=== PATIENT | male | born 1950 | race Caucasian/White ===

== ENCOUNTER 2017-07-10 10:41 | Inpatient (IN) | payer MEDICARE, OTHER ==
[~2017-07-10] VITALS: Ht 167.6 cm; Wt 68.0 kg
[2017-07-10] VITALS (7 sets, daily range): BP systolic 94–142; BP diastolic 43–71
[2017-07-10] MEDS ORDERED: LORATADINE10 M3 PO (10:50)
[2017-07-10] MEDS ORDERED: LEVOTHYROXINE75 MCG ORAL (10:50)
[2017-07-10] MEDS ORDERED: BENAZEPRIL HCL10 MG ORAL (10:50)
[2017-07-10] MEDS ORDERED: FERROUS SULFAT325 MG ORAL (10:50)
[2017-07-10] MEDS ORDERED: ATENOLOL25 MG ORAL (10:50)
[2017-07-10] MEDS ORDERED: ZYPREXA10 MG ORAL (10:50)
[2017-07-10] MEDS ORDERED: FOLIC ACID1 MG ORAL (10:50)
[2017-07-10] MEDS ORDERED: FLUOXETINE HCL10 MG ORAL (10:50)
[2017-07-10] MEDS ORDERED: AMOXICILLI250 MG/5 M ORAL (10:50)
[2017-07-10] MEDS ORDERED: PANTOPRAZOLE SO40 MG ORAL (10:50)
[2017-07-10] MEDS ORDERED: TEMAZEPAM15 MG ORAL (10:50)
[2017-07-10] MEDS ORDERED: GEMFIBROZIL600 MG ORAL (10:50)
[2017-07-10] MEDS ORDERED: CLARITHROMYCIN500 MG PO (10:50)
[2017-07-10] MEDS ORDERED: NAPROXEN25 G1 MC (10:50)
[2017-07-10 11:54] LABS: HEMATOCRIT 32.6 % (42.0-52.0); HEMOGLOBIN 10.6 G/DL (14.2-18.0); MEAN CORPUSCULAR VOLUME 102 FL (80-99); PLATELET COUNT 195 K/UL (150-450); RED BLOOD COUNT 3.21 M/UL (4.70-6.10); RED CELL DISTRIBUTION WIDTH 12.2 % (11.6-14.8); WHITE BLOOD COUNT 7.2 K/UL (4.8-10.8)
[2017-07-10 12:19] LABS: ALANINE AMINOTRANSFERASE 15 U/L (12-78); ALBUMIN 3.8 G/DL (3.4-5.0); ALBUMIN/GLOBULIN RATIO 0.9 (1.0-2.7); ALKALINE PHOSPHATASE 65 U/L (46-116); ANION GAP 11 mmol/L (5-15); ASPARTATE AMINO TRANSFERASE 15 U/L (15-37); BILIRUBIN,TOTAL 0.7 MG/DL (0.2-1.0); BLOOD UREA NITROGEN 43 mg/dL (7-18); CALCIUM 7.1 MG/DL (8.5-10.1); CARBON DIOXIDE 17 MMOL/L (21-32); CHLORIDE 109 MMOL/L (98-107); CKMB < 0.5 NG/ML (0.0-3.6); CREATINE KINASE 91 U/L (26-308); CREATININE 3.1 MG/DL (0.55-1.30); SODIUM 138 MMOL/L (136-145)
[2017-07-10 12:22] LABS: POTASSIUM 6.2 MMOL/L (3.5-5.1)
[2017-07-10] MEDS ORDERED: Calcium Gluconate 1gm/10ml vial IVP ONE (12:30)
--- NOTE | 2017-07-10 14:32 | Emergency Room Report ---
History of Present Illness General Chief Complaint: Syncope Source: Patient, Medical Record Present Illness HPI 67-year-old male presents to ED status post syncopal episode. Patient was at the adult daycare when he started to feel dizzy and passed out. No head trauma. Per EMS patient had low blood pressure. Given IV fluids. Patient states the last few days he's had diarrhea has been feeling weak. Denies chest pain or shortness of breath. Denies headaches. Patient has history of schizophrenia. Denies hearing voices. Denies or or drug use. No other aggravating relieving factors. Denies any other associated symptoms Allergies: Coded Allergies: No Known Allergies (Unverified , 07/10/17) Patient History Past Medical History: HTN, psych hx Past Surgical History: none Pertinent Family History: none Social History: Denies: smoking, alcohol use, drug use Immunizations: UTD Reviewed Nursing Documentation: PMH: Agreed, PSxH: Agreed Nursing Documentation-PMH Hx Hypertension: Yes History Of Psychiatric Problem: Yes - Schizophrenia Review of Systems All Other Systems: negative except mentioned in HPI Physical Exam Vital Signs Date Time Temp Pulse Resp B/P (MAP) Pulse Ox O2 Delivery O2 Flow Rate FiO2 07/10/17 10:37 90 16 148/66 99 Room Air 07/10/17 11:51 97.5 Sp02 EP Interpretation: reviewed, normal General Appearance: no apparent distress, alert, GCS 15, non-toxic Head: normocephalic, atraumatic Eyes: bilateral eye normal inspection, bilateral eye PERRL ENT: hearing grossly normal, normal pharynx, no angioedema, normal voice Neck: full range of motion, supple/symm/no masses Respiratory: chest non-tender, lungs clear, normal breath sounds, speaking full sentences Cardiovascular #1: regular rate, rhythm, no edema Cardiovascular #2: 2+ carotid (R), 2+ carotid (L), 2+ radial (R), 2+ radial (L) , 2+ dorsalis pedis (R), 2+ dorsalis pedis (L) Gastrointestinal: normal bowel sounds, non tender, soft, non-distended, no guarding, no rebound Rectal: deferred Genitourinary: normal inspection, no CVA tenderness Musculoskeletal: back normal, gait/station normal, normal range of motion, non- tender Neurologic: alert, oriented x3, responsive, motor strength/tone normal, sensory intact, speech normal Psychiatric: judgement/insight normal, memory normal, mood/affect normal, no suicidal/homicidal ideation Reflexes: 3+ bicep (R), 3+ bicep (L), 3+ tricep (R), 3+ tricep (L), 3+ knee (R) , 3+ knee (L) Skin: normal color, no rash, warm/dry, well hydrated Lymphatic: no adenopathy Medical Decision Making Diagnostic Impression: Primary Impression: Syncope Qualified Codes: R55 - Syncope and collapse Additional Impressions: Renal insufficiency Hyperkalemia, diminished renal excretion ER Course Hospital Course 67-year-old male presents to ED status post syncopal episode. Hypotensive in field Differential diagnoses include: PA/unstable angina, V. tach, bradycardia, hyperkalemia, fluid overload Clinical course Patient placed on stretcher. on monitor worker. After initial history and physical I ordered labs, EKG, IVFs, CXR labs reviewed- potassium 6.2. BUN/Cr elevated. Hemoglobin/hematocrit normal. trop negative EKG - NSR, no acute ischemic changes interpreted by me CXR unremarkable Given insulin/D50 and calcium. Case discussed with Dr. Ventura and he agreed to accept the patient to his service for further care and support I. I feel this is a highly complex case requiring extensive working including EKG/Rhythm strip, Xray/CT/US, Blood/urine lab work, repeat exams while in ED, and administration of strong opiates/narcotics for pain control, admission to hospital or close patient follow up. Diagnosis - hyperkalemia, renal insufficiency, syncope admitted to telemetry in serious condition Labs Test 07/10/17 11:28 White Blood Count 7.2 K/UL (4.8-10.8) Red Blood Count 3.21 M/UL (4.70-6.10) Hemoglobin 10.6 G/DL (14.2-18.0) Hematocrit 32.6 % (42.0-52.0) Mean Corpuscular Volume 102 FL (80-99) Mean Corpuscular Hemoglobin 33.0 PG (27.0-31.0) Mean Corpuscular Hemoglobin Concent 32.5 G/DL (32.0-36.0) Red Cell Distribution Width 12.2 % (11.6-14.8) Platelet Count 195 K/UL (150-450) Mean Platelet Volume 8.5 FL (6.5-10.1) Neutrophils (%) (Auto) % (45.0-75.0) Lymphocytes (%) (Auto) % (20.0-45.0) Monocytes (%) (Auto) % (1.0-10.0) Eosinophils (%) (Auto) % (0.0-3.0) Basophils (%) (Auto) % (0.0-2.0) Differential Total Cells Counted 100 Neutrophils % (Manual) 86 % (45-75) Lymphocytes % (Manual) 7 % (20-45) Monocytes % (Manual) 4 % (1-10) Eosinophils % (Manual) 0 % (0-3) Basophils % (Manual) 0 % (0-2) Band Neutrophils 3 % (0-8) Platelet Estimate Adequate Platelet Morphology Normal Hypochromasia 1+ Anisocytosis 1+ Macrocytosis 1+ Sodium Level 138 MMOL/L (136-145) Potassium Level 6.2 MMOL/L (3.5-5.1) Chloride Level 109 MMOL/L (98-107) Carbon Dioxide Level 17 MMOL/L (21-32) Anion Gap 11 mmol/L (5-15) Blood Urea Nitrogen 43 mg/dL (7-18) Creatinine 3.1 MG/DL (0.55-1.30) Estimat Glomerular Filtration Rate 20.2 mL/min (>60) Glucose Level 135 MG/DL (74-106) Calcium Level 7.1 MG/DL (8.5-10.1) Total Bilirubin 0.7 MG/DL (0.2-1.0) Aspartate Amino Transf (AST/SGOT) 15 U/L (15-37) Alanine Aminotransferase (ALT/SGPT) 15 U/L (12-78) Alkaline Phosphatase 65 U/L (46-116) Total Creatine Kinase 91 U/L (26-308) Creatine Kinase MB < 0.5 NG/ML (0.0-3.6) Creatine Kinase MB Relative Index 0.5 Troponin I 0.000 ng/mL (0.000-0.056) Pro-B-Type Natriuretic Peptide 110 pg/mL (0-125) Total Protein 7.9 G/DL (6.4-8.2) Albumin 3.8 G/DL (3.4-5.0) Globulin 4.1 g/dL Albumin/Globulin Ratio 0.9 (1.0-2.7) EKG Diagnostic Results Rate: normal ST Segments: no acute changes ASA given to the pt in ED: No Rhythm Strip Diag. Results EP Interpretation: yes Rhythm: NSR, no PVC's, no ectopy Chest X-Ray Diagnostic Results Chest X-Ray Diagnostic Results : Chest X-Ray Ordered: Yes # of Views/Limited/Complete: 1 View Indication: Other - syncope EP Interpretation: Yes Interpretation: no consolidation, no effusion, no pneumothorax, no acute cardiopulmonary disease Electronically Signed by: Electronically signed by Keagan Mosquera MD Last Vital Signs Date Time Temp Pulse Resp B/P (MAP) Pulse Ox O2 Delivery O2 Flow Rate FiO2 07/10/17 11:51 97.5 61 12 94/56 100 Room Air Disposition: ADMITTED INPATIENT Condition: Serious Referrals: NON PHYSICIAN (PCP) KEAGAN MOSQUERA M.D. Jul 10, 2017 14:32
[2017-07-10] MEDS ORDERED: Mylanta II UD 30ml ORAL PRN (14:45)
[2017-07-10] MEDS ORDERED: Morphine Sulfate 2mg/ml Inj IVP PRN (14:45)
[2017-07-10] MEDS ORDERED: LORazepam Inj 2mg/ml 1ml IV PRN (14:45)
[2017-07-10] MEDS ORDERED: Zolpidem 5mg tab ORAL PRN (21:00)
[2017-07-10] MEDS ORDERED: Miralax 17gm pkt ORAL PRN (21:00)
--- NOTE | 2017-07-10 21:48 | Diagnostic Imaging Report ---
Indication: Dyspnea Comparison: None A single view chest radiograph was obtained. Findings: Cardiomediastinal appearance is within normal limits for age. Pulmonary vascularity is appropriate. The diaphragmatic contour is smooth and costophrenic angles are sharp. No pleural effusions are identified. The bones are unremarkable. Impression: No acute findings
[2017-07-10] MEDS: Heparin 5000 units/ml inj SUBQ SCH (22:07)
--- NOTE | 2017-07-10 23:22 | History and Physical ---
History of Present Illness General Date patient seen: Jul 10, 2017 Reason for Hospitalization: Syncope Present Illness HPI 67 year old male with hx of HTN, psychosis presented to ED status post syncopal episode. Patient was at the adult daycare when he started to feel dizzy and passed out. No head trauma. Per EMS patient had low blood pressure. Given IV fluids. Patient states the last few days he's had diarrhea has been feeling weak. Denies chest pain or shortness of breath. Denies headaches. Patient has history of schizophrenia. Denies hearing voices. Denies or or drug use. No other aggravating relieving factors. Pt is admitted to telemetry for syncope and hyperkalemia. Allergies: Coded Allergies: No Known Allergies (Unverified , 07/10/17) Medication History Scheduled Amoxicillin* (Amoxicillin*), 1,000 MG ORAL EVERY 8 HOURS, (Reported) Atenolol* (Tenormin*), 25 MG ORAL DAILY, (Reported) Benazepril Hcl* (Benazepril Hcl*), 20 MG ORAL DAILY, (Reported) Clarithromycin* (Clarithromycin*), 500 MG PO Q12HR, (Reported) Ferrous Sulfate* (Ferrous Sulfate*), 325 MG ORAL DAILY, (Reported) Fluoxetine Hcl* (Fluoxetine Hcl*), 10 MG ORAL DAILY, (Reported) Folic Acid* (Folic Acid*), 1 MG ORAL DAILY, (Reported) Gemfibrozil (Gemfibrozil*), 600 MG ORAL BID, (Reported) Levothyroxine Sodium* (Levothyroxine Sodium*), 75 MCG ORAL DAILY, (Reported) Loratadine (Loratadine), 10 MG PO DAILY, (Reported) Naproxen (Naproxen), 500 MG MC BID, (Reported) Olanzapine* (Zyprexa*), 10 MG ORAL HS, (Reported) Pantoprazole* (Pantoprazole*), 40 MG ORAL EVERY 12 HOURS, (Reported) Temazepam (Temazepam*), 15 MG ORAL BEDTIME, (Reported) Patient History Healthcare decision maker Resuscitation status Advanced Directive on File Past Medical/Surgical History Past Medical/Surgical History: (1) History of psychosis (2) History of hypertension Review of Systems Constitutional: Reports: malaise, weakness Gastrointestinal: Reports: diarrhea Physical Exam General Appearance: WD/WN Lines, tubes and drains: peripheral HEENT: normocephalic Neck: non-tender, supple Respiratory/Chest: chest wall non-tender, lungs clear Breasts: no masses Cardiovascular/Chest: normal peripheral pulses Abdomen: normal bowel sounds Genitourinary/Rectal: normal genital exam Extremities: non-tender Last 24 Hour Vital Signs Date Time Temp Pulse Resp B/P (MAP) Pulse Ox O2 Delivery O2 Flow Rate FiO2 07/10/17 21:00 98 29 101/71 99 Room Air 07/10/17 19:00 81 18 142/49 95 Room Air 07/10/17 18:22 60 18 103/50 100 Room Air 07/10/17 15:00 83 15 112/70 98 Room Air 07/10/17 11:51 97.5 61 12 94/56 100 Room Air 07/10/17 10:37 90 16 148/66 99 Room Air Laboratory Tests Test 07/10/17 11:28 07/10/17 11:30 07/10/17 14:37 White Blood Count 7.2 K/UL (4.8-10.8) Red Blood Count 3.21 M/UL (4.70-6.10) L Hemoglobin 10.6 G/DL (14.2-18.0) L Hematocrit 32.6 % (42.0-52.0) L Mean Corpuscular Volume 102 FL (80-99) H Mean Corpuscular Hemoglobin 33.0 PG (27.0-31.0) H Mean Corpuscular Hemoglobin Concent 32.5 G/DL (32.0-36.0) Red Cell Distribution Width 12.2 % (11.6-14.8) Platelet Count 195 K/UL (150-450) Mean Platelet Volume 8.5 FL (6.5-10.1) Neutrophils (%) (Auto) % (45.0-75.0) Lymphocytes (%) (Auto) % (20.0-45.0) Monocytes (%) (Auto) % (1.0-10.0) Eosinophils (%) (Auto) % (0.0-3.0) Basophils (%) (Auto) % (0.0-2.0) Differential Total Cells Counted 100 Neutrophils % (Manual) 86 % (45-75) H Lymphocytes % (Manual) 7 % (20-45) L Monocytes % (Manual) 4 % (1-10) Eosinophils % (Manual) 0 % (0-3) Basophils % (Manual) 0 % (0-2) Band Neutrophils 3 % (0-8) Platelet Estimate Adequate Platelet Morphology Normal Hypochromasia 1+ Anisocytosis 1+ Macrocytosis 1+ Sodium Level 138 MMOL/L (136-145) Pending Potassium Level 6.2 MMOL/L (3.5-5.1) *H Pending Chloride Level 109 MMOL/L (98-107) H Pending Carbon Dioxide Level 17 MMOL/L (21-32) L Pending Anion Gap 11 mmol/L (5-15) Blood Urea Nitrogen 43 mg/dL (7-18) H Pending Creatinine 3.1 MG/DL (0.55-1.30) H Pending Estimat Glomerular Filtration Rate 20.2 mL/min (>60) Pending Glucose Level 135 MG/DL (74-106) H Pending Calcium Level 7.1 MG/DL (8.5-10.1) L Pending Total Bilirubin 0.7 MG/DL (0.2-1.0) Pending Aspartate Amino Transf (AST/SGOT) 15 U/L (15-37) Pending Alanine Aminotransferase (ALT/SGPT) 15 U/L (12-78) Pending Alkaline Phosphatase 65 U/L (46-116) Pending Total Creatine Kinase 91 U/L (26-308) Pending Creatine Kinase MB < 0.5 NG/ML (0.0-3.6) Creatine Kinase MB Relative Index 0.5 Troponin I 0.000 ng/mL (0.000-0.056) Pro-B-Type Natriuretic Peptide 110 pg/mL (0-125) Total Protein 7.9 G/DL (6.4-8.2) Pending Albumin 3.8 G/DL (3.4-5.0) Pending Globulin 4.1 g/dL Pending Albumin/Globulin Ratio 0.9 (1.0-2.7) L Cortisol Pending Osmolality Pending Uric Acid Pending Phosphorus Level Pending Magnesium Level Pending Free Thyroxine Pending Free Triiodothyronine Pending Height (Feet): 5 Height (Inches): 6.00 Weight (Pounds): 164 Medications Current Medications Medications (Trade) Dose Ordered Sig/Sandra Route PRN Reason Start Time Stop Time Status Last Admin Dose Admin Acetaminophen (Tylenol) 650 mg Q4H PRN ORAL T>100.5 07/10/17 14:45 08/09/17 14:44 Al Hydroxide/Mg Hydroxide (Mylanta II) 30 ml Q6H PRN ORAL dyspepsia 07/10/17 14:45 08/09/17 14:44 Atenolol (Tenormin) 25 mg DAILY ORAL 07/11/17 09:00 08/10/17 08:59 Clonidine HCl (Catapres) 0.1 mg Q4H PRN ORAL SBP > 160mmHg 07/10/17 14:45 08/09/17 14:44 Dextrose (Dextrose 50%) STAT PRN IV Hypoglycemia 07/10/17 14:45 08/09/17 14:44 Fluoxetine HCl (PROzac) 10 mg DAILY ORAL 07/11/17 09:00 08/10/17 08:59 Heparin Sodium (Porcine) (Heparin 5000 units/ml) 5,000 units EVERY 12 HOURS SUBQ 07/10/17 21:00 08/09/17 20:59 07/10/17 22:07 Levothyroxine Sodium (Synthroid) 75 mcg ACBREAKFAST ORAL 07/11/17 06:30 08/10/17 06:29 Lorazepam (Ativan 2mg/ml 1ml) 0.5 mg Q4H PRN IV For Anxiety 07/10/17 14:45 07/17/17 14:44 Morphine Sulfate (Morphine Sulfate) 1 mg Q4H PRN IVP PAIN 4-10 07/10/17 14:45 07/17/17 14:44 Olanzapine (ZyPREXA) 5 mg QHS ORAL 07/10/17 21:00 08/09/17 20:59 07/10/17 22:07 Ondansetron HCl (Zofran) 4 mg Q6H PRN IVP Nausea & Vomiting 07/10/17 14:45 08/09/17 14:44 Polyethylene Glycol (Miralax) 17 gm HSPRN PRN ORAL Constipation 07/10/17 21:00 08/09/17 20:59 Zolpidem Tartrate (Ambien) 5 mg HSPRN PRN ORAL Insomnia 07/10/17 21:00 07/17/17 20:59 Assessment/Plan Problem List: (1) Acute encephalopathy ICD Codes: G93.40 - Encephalopathy, unspecified SNOMED: 8552814 (2) Hyperkalemia, diminished renal excretion ICD Codes: E87.5 - Hyperkalemia SNOMED: 37927340, 505870714 (3) History of hypertension ICD Codes: Z86.79 - Personal history of other diseases of the circulatory system SNOMED: 212218552 (4) History of psychosis ICD Codes: Z86.59 - Personal history of other mental and behavioral disorders SNOMED: 020034150 Assessment/Plan iv fluids check electrolytes check echo adjust BP meds neuro and renal evaluation. DELILAH SANCHEZ Jul 10, 2017 23:22
[2017-07-11 04:00] VITALS: BP 104/73
[2017-07-11 05:19] LABS: BASOPHILS % (AUTO) 0.3 % (0.0-2.0); EOSINOPHILS % (AUTO) 4.6 % (0.0-3.0); HEMATOCRIT 27.8 % (42.0-52.0); HEMOGLOBIN 9.6 G/DL (14.2-18.0); MEAN CORPUSCULAR VOLUME 101 FL (80-99); MONOCYTES % (AUTO) 8.5 % (1.0-10.0); NEUTROPHILS % (AUTO) 64.5 % (45.0-75.0); PLATELET COUNT 188 K/UL (150-450); RED BLOOD COUNT 2.77 M/UL (4.70-6.10); RED CELL DISTRIBUTION WIDTH 12.2 % (11.6-14.8); WHITE BLOOD COUNT 4.2 K/UL (4.8-10.8)
[2017-07-11 06:20] LABS: LACTATE DEHYDROGENASE 166 U/L (81-234); PHOSPHORUS 2.2 MG/DL (2.5-4.9)
[2017-07-11 06:31] LABS: INR 1.1 (0.9-1.1)
[2017-07-11 06:32] LABS: ALANINE AMINOTRANSFERASE 9 U/L (12-78); ALBUMIN 3.3 G/DL (3.4-5.0); ALBUMIN/GLOBULIN RATIO 0.9 (1.0-2.7); ALKALINE PHOSPHATASE 68 U/L (46-116); ANION GAP 12 mmol/L (5-15); ASPARTATE AMINO TRANSFERASE 16 U/L (15-37); BILIRUBIN,TOTAL 0.5 MG/DL (0.2-1.0); BLOOD UREA NITROGEN 31 mg/dL (7-18); CARBON DIOXIDE 16 MMOL/L (21-32); CHLORIDE 114 MMOL/L (98-107); CHOLESTEROL 126 MG/DL (< 200); HDL CHOLESTEROL 39 MG/DL (40-60); POTASSIUM 4.8 MMOL/L (3.5-5.1); SODIUM 142 MMOL/L (136-145); TRIGLYCERIDES 103 MG/DL (30-150)
[2017-07-11 07:16] LABS: % IRON SATURATION 9 % (15-50); IRON 33 ug/dL (50-175); TOTAL IRON BINDING CAPACITY 366 ug/dL (250-450)
[2017-07-11 08:00] VITALS: BP 108/60
[2017-07-11] MEDS: FLUoxetine 10mg cap ORAL SCH (08:44)
[2017-07-11] MEDS: Atenolol 25mg tab ORAL SCH (08:46)
[2017-07-11] MEDS: Heparin 5000 units/ml inj SUBQ SCH ×2 (08:48→20:50)
--- NOTE | 2017-07-11 10:19 | Pulmonology Progress Note ---
Assessment/Plan Problems: (1) Acute encephalopathy (2) Hyperkalemia, diminished renal excretion (3) History of hypertension (4) History of psychosis Assessment/Plan improving sitting up in the chair K better Mg and phos supplement continue iv fluis Subjective ROS Limited/Unobtainable: No Interval Events: feeling better Allergies: Coded Allergies: No Known Allergies (Unverified , 07/10/17) Objective Last 24 Hour Vital Signs Date Time Temp Pulse Resp B/P (MAP) Pulse Ox O2 Delivery O2 Flow Rate FiO2 07/11/17 08:46 75 108/60 07/11/17 08:00 99.9 75 18 108/60 99 Room Air 07/11/17 04:00 99.1 85 20 104/73 98 Room Air 07/11/17 04:00 71 07/11/17 00:30 97.5 76 18 108/60 100 Room Air 07/10/17 23:30 76 18 108/60 100 Room Air 07/10/17 23:00 68 11 109/43 100 Room Air 07/10/17 21:00 98 29 101/71 99 Room Air 07/10/17 19:00 81 18 142/49 95 Room Air 07/10/17 18:22 60 18 103/50 100 Room Air 07/10/17 15:00 83 15 112/70 98 Room Air 07/10/17 11:51 97.5 61 12 94/56 100 Room Air 07/10/17 10:37 90 16 148/66 99 Room Air Intake and Output 07/10/17 07/11/17 19:00 07:00 Intake Total 1000 ml 150 ml Output Total 350 ml Balance 1000 ml -200 ml Intake Oral 0 ml 150 ml IV Total 1000 ml Output Urine Total 350 ml # Voids 1 General Appearance: WD/WN HEENT: normocephalic, atraumatic Respiratory/Chest: chest wall non-tender, lungs clear Abdomen: normal bowel sounds, soft, non tender Genitourinary: normal external genitalia Extremities: no cyanosis Skin: no lesions Neurologic/Psychiatric: reconstructive surgeon II-XII grossly normal Lymphatic: no neck adenopathy Laboratory Tests 07/10/17 11:28: White Blood Count 7.2, Red Blood Count 3.21L, Hemoglobin 10.6L, Hematocrit 32.6L , Mean Corpuscular Volume 102H, Mean Corpuscular Hemoglobin 33.0H, Mean Corpuscular Hemoglobin Concent 32.5, Red Cell Distribution Width 12.2, Platelet Count 195, Mean Platelet Volume 8.5, Neutrophils (%) (Auto) , Lymphocytes (%) ( Auto) , Monocytes (%) (Auto) , Eosinophils (%) (Auto) , Basophils (%) (Auto) , Differential Total Cells Counted 100, Neutrophils % (Manual) 86H, Lymphocytes % (Manual) 7L, Monocytes % (Manual) 4, Eosinophils % (Manual) 0, Basophils % ( Manual) 0, Band Neutrophils 3, Platelet Estimate Adequate, Platelet Morphology Normal, Hypochromasia 1+, Anisocytosis 1+, Macrocytosis 1+, Sodium Level 138, Potassium Level 6.2*H, Chloride Level 109H, Carbon Dioxide Level 17L, Anion Gap 11, Blood Urea Nitrogen 43H, Creatinine 3.1H, Estimat Glomerular Filtration Rate 20.2, Glucose Level 135H, Calcium Level 7.1L, Total Bilirubin 0.7, Aspartate Amino Transf (AST/SGOT) 15, Alanine Aminotransferase (ALT/SGPT) 15, Alkaline Phosphatase 65, Total Creatine Kinase 91, Creatine Kinase MB < 0.5, Creatine Kinase MB Relative Index 0.5, Troponin I 0.000, Pro-B-Type Natriuretic Peptide 110, Total Protein 7.9, Albumin 3.8, Globulin 4.1, Albumin/Globulin Ratio 0.9L 07/10/17 11:30: Cortisol 30.8 07/10/17 14:37: Sodium Level [Pending], Potassium Level [Pending], Chloride Level [Pending], Carbon Dioxide Level [Pending], Blood Urea Nitrogen [Pending], Creatinine [ Pending], Estimat Glomerular Filtration Rate [Pending], Glucose Level [Pending] , Calcium Level [Pending], Total Bilirubin [Pending], Aspartate Amino Transf ( AST/SGOT) [Pending], Alanine Aminotransferase (ALT/SGPT) [Pending], Alkaline Phosphatase [Pending], Total Creatine Kinase [Pending], Total Protein [Pending] , Albumin [Pending], Globulin [Pending], Osmolality [Pending], Uric Acid [ Pending], Phosphorus Level [Pending], Magnesium Level [Pending], Free Thyroxine [Pending], Free Triiodothyronine [Pending] 07/11/17 03:30: White Blood Count 4.2L, Red Blood Count 2.77L, Hemoglobin 9.6L, Hematocrit 27.8L , Mean Corpuscular Volume 101H, Mean Corpuscular Hemoglobin 34.6H, Mean Corpuscular Hemoglobin Concent 34.4, Red Cell Distribution Width 12.2, Platelet Count 188, Mean Platelet Volume 8.1, Neutrophils (%) (Auto) 64.5, Lymphocytes (% ) (Auto) 22.0, Monocytes (%) (Auto) 8.5, Eosinophils (%) (Auto) 4.6H, Basophils (%) (Auto) 0.3, Neutrophils % (Manual) [Pending], Lymphocytes % (Manual) [ Pending], Platelet Estimate [Pending], Platelet Morphology [Pending], Sodium Level 142, Potassium Level 4.8, Chloride Level 114H, Carbon Dioxide Level 16L, Anion Gap 12, Blood Urea Nitrogen 31H, Creatinine 2.0H, Estimat Glomerular Filtration Rate 33.5, Glucose Level 109H, Calcium Level 7.0L, Total Bilirubin 0.5, Aspartate Amino Transf (AST/SGOT) 16, Alanine Aminotransferase (ALT/SGPT) 9L, Alkaline Phosphatase 68, Total Creatine Kinase [Pending], Total Protein 6.9 , Albumin 3.3L, Globulin 3.6, Albumin/Globulin Ratio 0.9L, Uric Acid [Pending], Phosphorus Level 2.2L, Magnesium Level 1.6L, Erythrocyte Sedimentation Rate [ Pending], Reticulocyte Count [Pending], Prothrombin Time 11.5, Prothromb Time International Ratio 1.1, Activated Partial Thromboplast Time 31, Hemoglobin A1c 5.8, Iron Level 33L, Total Iron Binding Capacity 366, Percent Iron Saturation 9L , Unsaturated Iron Binding 333, Lactate Dehydrogenase 166, Triglycerides Level 103, Cholesterol Level 126, LDL Cholesterol 76, HDL Cholesterol 39L, Cholesterol /HDL Ratio 3.2L, Vitamin B12 Level 252, Folate 18.2, Thyroid Stimulating Hormone (TSH) 0.895 Current Medications Medications (Trade) Dose Ordered Sig/Sandra Route PRN Reason Start Time Stop Time Status Last Admin Dose Admin Acetaminophen (Tylenol) 650 mg Q4H PRN ORAL T>100.5 07/10/17 14:45 08/09/17 14:44 Al Hydroxide/Mg Hydroxide (Mylanta II) 30 ml Q6H PRN ORAL dyspepsia 07/10/17 14:45 08/09/17 14:44 Atenolol (Tenormin) 25 mg DAILY ORAL 07/11/17 09:00 08/10/17 08:59 07/11/17 08:46 Clonidine HCl (Catapres) 0.1 mg Q4H PRN ORAL SBP > 160mmHg 07/10/17 14:45 08/09/17 14:44 Dextrose (Dextrose 50%) STAT PRN IV Hypoglycemia 07/10/17 14:45 08/09/17 14:44 Fluoxetine HCl (PROzac) 10 mg DAILY ORAL 07/11/17 09:00 08/10/17 08:59 07/11/17 08:44 Heparin Sodium (Porcine) (Heparin 5000 units/ml) 5,000 units EVERY 12 HOURS SUBQ 07/10/17 21:00 08/09/17 20:59 07/11/17 08:48 Influenza Virus Vaccine Quadrival (Flu Vaccine Quadrivalent) 0.5 ml ONCE ONCE IM 07/11/17 09:00 07/11/17 09:01 UNV Levothyroxine Sodium (Synthroid) 75 mcg ACBREAKFAST ORAL 07/11/17 06:30 08/10/17 06:29 07/11/17 06:19 Lorazepam (Ativan 2mg/ml 1ml) 0.5 mg Q4H PRN IV For Anxiety 07/10/17 14:45 07/17/17 14:44 Morphine Sulfate (Morphine Sulfate) 1 mg Q4H PRN IVP PAIN 4-10 07/10/17 14:45 07/17/17 14:44 Olanzapine (ZyPREXA) 5 mg QHS ORAL 07/10/17 21:00 08/09/17 20:59 07/10/17 22:07 Ondansetron HCl (Zofran) 4 mg Q6H PRN IVP Nausea & Vomiting 07/10/17 14:45 08/09/17 14:44 Pneumococcal Polyvalent Vaccine (Pneumovax) 0.5 ml ONCE ONCE IM 07/11/17 09:00 07/11/17 09:01 UNV Polyethylene Glycol (Miralax) 17 gm HSPRN PRN ORAL Constipation 07/10/17 21:00 08/09/17 20:59 Zolpidem Tartrate (Ambien) 5 mg HSPRN PRN ORAL Insomnia 07/10/17 21:00 07/17/17 20:59 DELILAH SANCHEZ Jul 11, 2017 10:19
[2017-07-11 10:26] LABS: CREATINE KINASE 93 U/L (26-308)
[2017-07-11 12:00] VITALS: BP 103/54
[2017-07-11] MEDS ORDERED: Sodium Phosphate 30 MM in NS 275 ML IV ONE (12:00)
--- NOTE | 2017-07-11 12:31 | Consultation ---
Consult Note Consult Note asked to evaluate for renal failure 67-year-old male presents to ED status post syncopal episode. Patient was at the adult daycare when he started to feel dizzy and passed out. No head trauma. Per EMS patient had low blood pressure. Given IV fluids. Patient states the last few days he's had diarrhea has been feeling weak. Denies chest pain or shortness of breath. Denies headaches. Patient has history of schizophrenia. Denies hearing voices. Denies or or drug use. No other aggravating relieving factors. Denies any other associated symptoms Past Medical History: HTN, psych hx Hx Hypertension: Yes History Of Psychiatric Problem: Yes - Schizophrenia patient states that he was told to have Kidney disease. Assessment/Plan status: Renal failure, Likely hypertensive kidney disease- Cr lowering Hyperkalemia Anemia- HTN Schizophrenia Plan: Kidney NGUYỄN 2D echo Hydrate Urine studies per orders EVA FARLEY Jul 11, 2017 12:31
--- NOTE | 2017-07-11 12:55 | Cardiology Progress Note ---
Assessment/Plan Assessment/Plan syncope diarrhea dehydration hyperkalemia anemia ivf orthosttic vitlas dc acei echo home soon [id number] Objective Last 24 Hour Vital Signs Date Time Temp Pulse Resp B/P (MAP) Pulse Ox O2 Delivery O2 Flow Rate FiO2 07/11/17 08:46 75 108/60 07/11/17 08:00 99.9 75 18 108/60 99 Room Air 07/11/17 08:00 78 07/11/17 04:00 99.1 85 20 104/73 98 Room Air 07/11/17 04:00 71 07/11/17 00:30 97.5 76 18 108/60 100 Room Air 07/10/17 23:30 76 18 108/60 100 Room Air 07/10/17 23:00 68 11 109/43 100 Room Air 07/10/17 21:00 98 29 101/71 99 Room Air 07/10/17 19:00 81 18 142/49 95 Room Air 07/10/17 18:22 60 18 103/50 100 Room Air 07/10/17 15:00 83 15 112/70 98 Room Air Intake and Output 07/10/17 07/11/17 19:00 07:00 Intake Total 1000 ml 150 ml Output Total 350 ml Balance 1000 ml -200 ml Intake Oral 0 ml 150 ml IV Total 1000 ml Output Urine Total 350 ml # Voids 1 Laboratory Tests Test 07/10/17 14:37 07/11/17 03:30 Sodium Level Pending 142 MMOL/L (136-145) Potassium Level Pending 4.8 MMOL/L (3.5-5.1) Chloride Level Pending 114 MMOL/L (98-107) H Carbon Dioxide Level Pending 16 MMOL/L (21-32) L Blood Urea Nitrogen Pending 31 mg/dL (7-18) H Creatinine Pending 2.0 MG/DL (0.55-1.30) H Estimat Glomerular Filtration Rate Pending 33.5 mL/min (>60) Glucose Level Pending 109 MG/DL (74-106) H Osmolality Pending Uric Acid Pending 6.9 MG/DL (2.6-7.2) Calcium Level Pending 7.0 MG/DL (8.5-10.1) L Phosphorus Level Pending 2.2 MG/DL (2.5-4.9) L Magnesium Level Pending 1.6 MG/DL (1.8-2.4) L Total Bilirubin Pending 0.5 MG/DL (0.2-1.0) Aspartate Amino Transf (AST/SGOT) Pending 16 U/L (15-37) Alanine Aminotransferase (ALT/SGPT) Pending 9 U/L (12-78) L Alkaline Phosphatase Pending 68 U/L (46-116) Total Creatine Kinase Pending 93 U/L (26-308) Total Protein Pending 6.9 G/DL (6.4-8.2) Albumin Pending 3.3 G/DL (3.4-5.0) L Globulin Pending 3.6 g/dL Free Thyroxine Pending Free Triiodothyronine Pending White Blood Count 4.2 K/UL (4.8-10.8) L Red Blood Count 2.77 M/UL (4.70-6.10) L Hemoglobin 9.6 G/DL (14.2-18.0) L Hematocrit 27.8 % (42.0-52.0) L Mean Corpuscular Volume 101 FL (80-99) H Mean Corpuscular Hemoglobin 34.6 PG (27.0-31.0) H Mean Corpuscular Hemoglobin Concent 34.4 G/DL (32.0-36.0) Red Cell Distribution Width 12.2 % (11.6-14.8) Platelet Count 188 K/UL (150-450) Mean Platelet Volume 8.1 FL (6.5-10.1) Neutrophils (%) (Auto) 64.5 % (45.0-75.0) Lymphocytes (%) (Auto) 22.0 % (20.0-45.0) Monocytes (%) (Auto) 8.5 % (1.0-10.0) Eosinophils (%) (Auto) 4.6 % (0.0-3.0) H Basophils (%) (Auto) 0.3 % (0.0-2.0) Differential Total Cells Counted 100 Neutrophils % (Manual) 71 % (45-75) Lymphocytes % (Manual) 16 % (20-45) L Monocytes % (Manual) 7 % (1-10) Eosinophils % (Manual) 6 % (0-3) H Basophils % (Manual) 0 % (0-2) Band Neutrophils 0 % (0-8) Platelet Estimate Adequate Platelet Morphology Normal Hypochromasia 2+ Anisocytosis 1+ Macrocytosis 1+ Erythrocyte Sedimentation Rate 45 MM/HR (0-20) H Reticulocyte Count 0.9 % (0.0-2.0) Prothrombin Time 11.5 SEC (9.30-11.50) Prothromb Time International Ratio 1.1 (0.9-1.1) Activated Partial Thromboplast Time 31 SEC (23-33) Anion Gap 12 mmol/L (5-15) Hemoglobin A1c 5.8 % (4.3-6.0) Iron Level 33 ug/dL (50-175) L Total Iron Binding Capacity 366 ug/dL (250-450) Percent Iron Saturation 9 % (15-50) L Unsaturated Iron Binding 333 ug/dL (112-346) Lactate Dehydrogenase 166 U/L (81-234) Albumin/Globulin Ratio 0.9 (1.0-2.7) L Triglycerides Level 103 MG/DL (30-150) Cholesterol Level 126 MG/DL (< 200) LDL Cholesterol 76 mg/dL (<100) HDL Cholesterol 39 MG/DL (40-60) L Cholesterol/HDL Ratio 3.2 (3.3-4.4) L Vitamin B12 Level 252 PG/ML (193-986) Folate 18.2 NG/ML (8.6-58.9) Thyroid Stimulating Hormone (TSH) 0.895 uiU/mL (0.358-3.740) DELFIN SOLITARIO Jul 11, 2017 12:55
[2017-07-11] MEDS: D5 1/2NS 1,000 ML IV SCH (13:49)
--- NOTE | 2017-07-11 13:56 | Diagnostic Imaging Report ---
Indication:Elevated Bun and Creatinine. Technique: Grayscale and duplex Doppler imaging of the kidneys performed. Comparison: None Findings: There is a cyst in the lower pole of the right kidney measuring approximately 5 cm. There is no hydronephrosis. The IVC and bladder appear normal. The right kidney measures 9.7 cm. Left kidney 9.7 cm. No free fluid seen. IMPRESSION: No acute findings. Right renal cyst
[2017-07-11] MEDS ORDERED: Flu Vaccine Quadrivalent 0.5ml IM ONE (14:30)
[2017-07-11] MEDS ORDERED: Pneumococcal Vaccine 25mcg/0.5ml IM ONE (14:30)
--- NOTE | 2017-07-11 15:05 | Neurology Progress Note ---
Interim History Interim History ROS Limited/Unobtainable: No Objective Physical Exam Last Vital Signs Date Time Temp Pulse Resp B/P (MAP) Pulse Ox O2 Delivery O2 Flow Rate FiO2 07/11/17 13:21 62 64 69 07/11/17 12:00 98.8 18 103/54 99 Room Air Laboratory Tests Test 07/11/17 03:30 White Blood Count 4.2 K/UL (4.8-10.8) L Red Blood Count 2.77 M/UL (4.70-6.10) L Hemoglobin 9.6 G/DL (14.2-18.0) L Hematocrit 27.8 % (42.0-52.0) L Mean Corpuscular Volume 101 FL (80-99) H Mean Corpuscular Hemoglobin 34.6 PG (27.0-31.0) H Mean Corpuscular Hemoglobin Concent 34.4 G/DL (32.0-36.0) Red Cell Distribution Width 12.2 % (11.6-14.8) Platelet Count 188 K/UL (150-450) Mean Platelet Volume 8.1 FL (6.5-10.1) Neutrophils (%) (Auto) 64.5 % (45.0-75.0) Lymphocytes (%) (Auto) 22.0 % (20.0-45.0) Monocytes (%) (Auto) 8.5 % (1.0-10.0) Eosinophils (%) (Auto) 4.6 % (0.0-3.0) H Basophils (%) (Auto) 0.3 % (0.0-2.0) Differential Total Cells Counted 100 Neutrophils % (Manual) 71 % (45-75) Lymphocytes % (Manual) 16 % (20-45) L Monocytes % (Manual) 7 % (1-10) Eosinophils % (Manual) 6 % (0-3) H Basophils % (Manual) 0 % (0-2) Band Neutrophils 0 % (0-8) Platelet Estimate Adequate Platelet Morphology Normal Hypochromasia 2+ Anisocytosis 1+ Macrocytosis 1+ Erythrocyte Sedimentation Rate 45 MM/HR (0-20) H Reticulocyte Count 0.9 % (0.0-2.0) Prothrombin Time 11.5 SEC (9.30-11.50) Prothromb Time International Ratio 1.1 (0.9-1.1) Activated Partial Thromboplast Time 31 SEC (23-33) Sodium Level 142 MMOL/L (136-145) Potassium Level 4.8 MMOL/L (3.5-5.1) Chloride Level 114 MMOL/L (98-107) H Carbon Dioxide Level 16 MMOL/L (21-32) L Anion Gap 12 mmol/L (5-15) Blood Urea Nitrogen 31 mg/dL (7-18) H Creatinine 2.0 MG/DL (0.55-1.30) H Estimat Glomerular Filtration Rate 33.5 mL/min (>60) Glucose Level 109 MG/DL (74-106) H Hemoglobin A1c 5.8 % (4.3-6.0) Uric Acid 6.9 MG/DL (2.6-7.2) Calcium Level 7.0 MG/DL (8.5-10.1) L Phosphorus Level 2.2 MG/DL (2.5-4.9) L Magnesium Level 1.6 MG/DL (1.8-2.4) L Iron Level 33 ug/dL (50-175) L Total Iron Binding Capacity 366 ug/dL (250-450) Percent Iron Saturation 9 % (15-50) L Unsaturated Iron Binding 333 ug/dL (112-346) Total Bilirubin 0.5 MG/DL (0.2-1.0) Aspartate Amino Transf (AST/SGOT) 16 U/L (15-37) Alanine Aminotransferase (ALT/SGPT) 9 U/L (12-78) L Alkaline Phosphatase 68 U/L (46-116) Lactate Dehydrogenase 166 U/L (81-234) Total Creatine Kinase 93 U/L (26-308) Total Protein 6.9 G/DL (6.4-8.2) Albumin 3.3 G/DL (3.4-5.0) L Globulin 3.6 g/dL Albumin/Globulin Ratio 0.9 (1.0-2.7) L Triglycerides Level 103 MG/DL (30-150) Cholesterol Level 126 MG/DL (< 200) LDL Cholesterol 76 mg/dL (<100) HDL Cholesterol 39 MG/DL (40-60) L Cholesterol/HDL Ratio 3.2 (3.3-4.4) L Vitamin B12 Level 252 PG/ML (193-986) Folate 18.2 NG/ML (8.6-58.9) Thyroid Stimulating Hormone (TSH) 0.895 uiU/mL (0.358-3.740) Impression/Recommendations Problems: (1) Syncope (2) History of hypertension (3) History of psychosis (4) Renal insufficiency Status: stable Recommendations # [id number] ELDON GE Jul 11, 2017 15:05
[2017-07-11 16:00] VITALS: BP 106/50
--- NOTE | 2017-07-11 16:19 | Cardiology Report ---
APPROVED REPORT EXAM: Two-dimensional and M-mode echocardiogram with Doppler and color Doppler. INDICATION Left Ventricular Function M-Mode DIMENSIONS IVSd0.8 (0.7-1.1cm)Left Atrium (MM)3.9 (1.6-4.0cm) LVDd3.8 (3.5-5.6cm)Aortic Root2.7 (2.0-3.7cm) PWd1.0 (0.7-1.1cm)Aortic Cusp Exc.2.0 (1.5-2.0cm) LVDs2.7 (2.5-4.0cm) PWs1.4 cm Normal left ventricular chamber size, systolic function and wall motion. Left ventricular ejection fraction estimated to be 55 %. No evidence of left ventricular hypertrophy. No evidence of pericardial effusion. All other cardiac chamber sizes are within normal limits. Focal aortic valve sclerosis with adequate cusp excursion. Thickened mitral valve leaflets with normal excursion. Mitral annulus and aortic root calcification. Normal pulmonic valve structure. Normal tricuspid valve structure. IVC measures at 1.8 with physiologic collapse. A color flow and spectral Doppler study was performed and revealed: Mild aortic regurgitation. Trace mitral regurgitation. Mitral diastolic velocities suggest increased LA pressure and mod diastolic dysfucntion Trace tricuspid regurgitation. Tricuspid systolic velocities suggests peak right ventricular systolic pressure of 33 mmHg. No pulmonic regurgitation present.
--- NOTE | 2017-07-11 17:57 | Cardiology Report ---
APPROVED REPORT EKG Measurement Heart [id number] Normal sinus rhythm Normal ECG
[2017-07-11 20:00] VITALS: BP 109/69
[2017-07-11] MEDS: Tamsulosin 0.4mg cap ORAL SCH (20:47)
[2017-07-12] VITALS (7 sets, daily range): BP systolic 98–121; BP diastolic 55–71
[2017-07-12] MEDS: D5 1/2NS 1,000 ML IV SCH ×2 (02:52→16:38)
[2017-07-12 06:23] LABS: BASOPHILS % (AUTO) 0.5 % (0.0-2.0); HEMATOCRIT 28.3 % (42.0-52.0); HEMOGLOBIN 9.4 G/DL (14.2-18.0); LYMPHOCYTES % (AUTO) 36.4 % (20.0-45.0); MEAN CORPUSCULAR VOLUME 100 FL (80-99); MONOCYTES % (AUTO) 9.5 % (1.0-10.0); NEUTROPHILS % (AUTO) 44.6 % (45.0-75.0); PLATELET COUNT 176 K/UL (150-450); RED BLOOD COUNT 2.85 M/UL (4.70-6.10); RED CELL DISTRIBUTION WIDTH 12.1 % (11.6-14.8); WHITE BLOOD COUNT 4.2 K/UL (4.8-10.8)
[2017-07-12 06:59] LABS: CREATINE KINASE 64 U/L (26-308); GAMMA GLUTAMYL TRANSPEPTIDASE 11 U/L (5-85); PHOSPHORUS 3.2 MG/DL (2.5-4.9)
[2017-07-12 07:04] LABS: ALANINE AMINOTRANSFERASE 15 U/L (12-78); ALBUMIN 3.2 G/DL (3.4-5.0); ALBUMIN/GLOBULIN RATIO 0.8 (1.0-2.7); ALKALINE PHOSPHATASE 68 U/L (46-116); ANION GAP 11 mmol/L (5-15); ASPARTATE AMINO TRANSFERASE 15 U/L (15-37); BILIRUBIN,TOTAL 0.3 MG/DL (0.2-1.0); BLOOD UREA NITROGEN 21 mg/dL (7-18); CALCIUM 8.2 MG/DL (8.5-10.1); CARBON DIOXIDE 19 MMOL/L (21-32); CHLORIDE 112 MMOL/L (98-107); CREATININE 1.6 MG/DL (0.55-1.30); FERRITIN 314 NG/ML (8-388); LACTATE DEHYDROGENASE 186 U/L (81-234); POTASSIUM 4.3 MMOL/L (3.5-5.1); SODIUM 142 MMOL/L (136-145)
[2017-07-12 08:27] LABS: % IRON SATURATION 12 % (15-50); IRON 41 ug/dL (50-175); TOTAL IRON BINDING CAPACITY 334 ug/dL (250-450)
--- NOTE | 2017-07-12 08:45 | Nephrology Progress Note ---
Assessment/Plan Problem List: (1) Hyperkalemia, diminished renal excretion (2) Acute renal failure Assessment Renal failure, Likely hypertensive kidney disease- Cr lowering Hyperkalemia Anemia- HTN Schizophrenia Plan Plan: Kidney NGUYỄN Neg 2D echo Left ventricular ejection fraction estimated to be 55 %. Hydrate Urine studies monitor renal parameters per orders Subjective ROS Limited/Unobtainable: No Constitutional: Reports: malaise Objective Objective Last 24 Hour Vital Signs Date Time Temp Pulse Resp B/P (MAP) Pulse Ox O2 Delivery O2 Flow Rate FiO2 07/12/17 04:00 97.7 63 20 104/64 99 Room Air 07/12/17 04:00 60 07/12/17 00:00 58 07/12/17 00:00 97.9 60 20 108/61 98 Room Air 07/11/17 20:00 98.1 62 20 109/69 99 Room Air 07/11/17 20:00 62 07/11/17 16:00 62 07/11/17 16:00 98.3 60 18 106/50 100 Room Air 07/11/17 13:21 62 64 69 07/11/17 12:00 98.8 60 18 103/54 99 Room Air 07/11/17 11:47 63 07/11/17 08:46 75 108/60 Intake and Output 07/11/17 07/12/17 19:00 07:00 Intake Total 840 ml 575 ml Output Total 1000 ml 900 ml Balance -160 ml -325 ml Intake Oral 840 ml 350 ml IV Total 225 ml Output Urine Total 1000 ml 900 ml # Voids 4 2 Laboratory Tests 07/12/17 04:00: White Blood Count 4.2L, Red Blood Count 2.85L, Hemoglobin 9.4L, Hematocrit 28.3L , Mean Corpuscular Volume 100H, Mean Corpuscular Hemoglobin 33.0H, Mean Corpuscular Hemoglobin Concent 33.1, Red Cell Distribution Width 12.1, Platelet Count 176, Mean Platelet Volume 8.3, Neutrophils (%) (Auto) 44.6L, Lymphocytes ( %) (Auto) 36.4, Monocytes (%) (Auto) 9.5, Eosinophils (%) (Auto) 9.0H, Basophils (%) (Auto) 0.5, Erythrocyte Sedimentation Rate 42H, Reticulocyte Count [Pending], Prothrombin Time 10.9, Prothromb Time International Ratio 1.0, Activated Partial Thromboplast Time 29, Urine Eosinophils [Pending], Urine Random Sodium 81, Sodium Level 142, Potassium Level 4.3, Chloride Level 112H, Carbon Dioxide Level 19L, Anion Gap 11, Blood Urea Nitrogen 21H, Creatinine 1.6H , Estimat Glomerular Filtration Rate 43.3, Glucose Level 98, Hemoglobin A1c 5.8 , Uric Acid 7.2, Calcium Level 8.2L, Phosphorus Level 3.2, Magnesium Level 1.9, Iron Level 41L, Total Iron Binding Capacity 334, Percent Iron Saturation 12L, Unsaturated Iron Binding 293, Ferritin 314, Total Bilirubin 0.3, Gamma Glutamyl Transpeptidase 11, Aspartate Amino Transf (AST/SGOT) 15, Alanine Aminotransferase (ALT/SGPT) 15, Alkaline Phosphatase 68, Lactate Dehydrogenase 186, Total Creatine Kinase 64, Troponin I 0.003, C-Reactive Protein, Quantitative 3.0H, Pro-B-Type Natriuretic Peptide 93, Total Protein 7.0, Albumin 3.2L, Globulin 3.8, Albumin/Globulin Ratio 0.8L, Vitamin B12 Level 246, Folate 32.0 Height (Feet): 5 Height (Inches): 6.00 Weight (Pounds): 150 General Appearance: no apparent distress Cardiovascular: normal rate Abdomen: soft Objective no signs of chf EVA FARLEY Jul 12, 2017 08:45
[2017-07-12] MEDS: Heparin 5000 units/ml inj SUBQ SCH ×2 (09:17→20:41)
[2017-07-12] MEDS: FLUoxetine 10mg cap ORAL SCH (09:18)
[2017-07-12] MEDS: Atenolol 25mg tab ORAL SCH (09:19)
--- NOTE | 2017-07-12 09:42 | Consultation ---
DATE OF CONSULTATION: 07/11/2017 NEUROLOGICAL CONSULTATION CONSULTING PHYSICIAN: Carlos Bhandari M.D. ATTENDING/REQUESTING PHYSICIAN: Dilcia Ventura M.D. HISTORY OF PRESENT ILLNESS: This is a 67-year-old gentleman, brought to this facility from adult daycare unit where while at the dinner table, he started to feel dizzy, he got up to try to walk, and lost consciousness falling down. He denies urinary or bowel incontinence. No tongue biting. He was describing having few days of slight diarrhea causing him generalized weakness, but he admitted though having sufficient amount of fluids of about 6 glasses of water a day. In the emergency room, he was denying chest pain or palpitations. There were no respiratory difficulties. No headache. No dizziness. No unilateral weakness, numbness, or tingling. His vital signs on arrival were stable, blood pressure 148/66, temperature 97.5. His chest x-ray with no acute findings. Laboratory work was obtained revealing CBC study with elevated MCV, MCH, sedimentation rate of 45, normal coagulation panel. Chemistry panel with potassium 6.2, BUN of 43, creatinine 3.1, glucose 135, but normal troponin. The patient now indicated that he had at least couple of such episodes in the past, but required no hospitalization. PAST MEDICAL HISTORY: History of hypertension, hypothyroidism, history of chronic psychiatric disorder, hyperlipidemia. Denies presence of diabetes. MEDICATIONS: Prior to admission included atenolol, benazepril, ferrous sulfate, fluoxetine 10 mg daily, folate, gemfibrozil, levothyroxine, loratadine, Naprosyn, olanzapine 10 mg at bedtime, pantoprazole, and temazepam. ALLERGIES: None reported. SOCIAL HISTORY: Resident of a [facility]. He denies alcohol and drug abuse. Nonsmoker. FAMILY HISTORY: Noncontributory. REVIEW OF SYMPTOMS: At this time, the patient is feeling well. He has no headache. No dizziness. Denies chest pain or palpitations. He is unaware of having seizures. PHYSICAL EXAMINATION: GENERAL: A well-developed, well-nourished man, not in acute distress. VITAL SIGNS: Stable. Blood pressure 142/80, respirations 14. HEENT: Head normocephalic. No evidence of trauma. Eyes, ears, nose, and throat are clear. NECK: Supple. No meningeal signs. MUSCULOSKELETAL: Unremarkable. There are no deformities. Peripheral pulses 1+, symmetric MENTAL STATUS: The patient is alert and oriented x3. Speech is fluent. Language is intact. There is no aphasia. No apraxia. Cognitive function is normal. The patient is able to provide with history. He is coherent and cooperative. He has somewhat blunt affect. CRANIAL NERVE II: Pupils both responding to light and accommodation. Extraocular movements are intact. CRANIAL NERVE V: Normal corneal responses. CRANIAL NERVE VII: No facial asymmetry. CRANIAL NERVE VIII: Grossly normal hearing. CRANIAL NERVES IX THROUGH XII: Tongue is in midline. Symmetric palate elevation. MOTOR EXAMINATION: Normal muscle tone. Strength 5/5 in all extremities. No involuntary movement. Deep reflexes 1+, symmetric with downgoing toes on both sides. SENSORY EXAMINATION: Normal to pinprick and light touch. GAIT: Not tested, but reported able to ambulate without assistance. IMPRESSION: 1. Recurrent syncopal episode, probably vasovagal. No evidence of transient ischemic attack or seizure disorder noted. 2. Chronic psychiatric disorder. 3. Hypertension. 4. Hyperlipidemia. RECOMMENDATIONS: Check orthostatic blood pressure. Get carotid duplex study. Cardiac monitoring. Add aspirin 81 mg daily. Continue with the current treatment. Cardiac assessment pending. Thank you for allowing me to see this interesting patient in neurological consultation. Carlos Bhandari M.D. DR: Mary JOB#: [id number] CC:
--- NOTE | 2017-07-12 09:42 | Consultation ---
DATE OF CONSULTATION: 07/11/2017 CARDIOLOGY CONSULTATION CONSULTING PHYSICIAN: Eyal Pirtchett M.D. ATTENDING/REFERRING PHYSICIAN: Dilcia Ventura M.D. REASON FOR REFERRAL: Syncope. HISTORY OF PRESENT ILLNESS: This is an elderly gentleman with history of multiple medical problems as delineated below. The patient apparently was sitting at a table and according to himself felt somewhat nauseated and subsequently found himself on the floor in the feeding lal. He was apparently at the adult daycare center. 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 Low blood pressure was documented apparently by the paramedics according to the emergency room physician's note. The patient has had some diarrhea and has had some abdominal pain and some nausea with no vomiting. No bloody or black stools. He denies any chest pain or pressure. No PND. No orthopnea. No palpitations. He indicates that when he sits up or stands up, he does get dizzy or lightheaded recently over the past few days, but not so prior to that. PAST MEDICAL HISTORY: Positive for history of high blood pressure for which he is taking medication. Chart indicates he has history of hypothyroidism, schizophrenia, and hyperlipidemia as well. MEDICATIONS: Include amoxicillin, atenolol 25 mg a day, benazepril 20 mg a day, clarithromycin, iron sulfate, Prozac, folic acid, gemfibrozil, Synthroid, loratadine, Naprosyn, Zyprexa, Protonix, and temazepam. SOCIAL HISTORY: He drinks two bottles of beer twice a month he states. No drug use and does not smoke. REVIEW OF SYSTEMS: GASTROINTESTINAL: As mentioned in HPI. GENITOURINARY: Negative. PULMONARY: Occasional cough. CONSTITUTIONAL: Negative. NEUROLOGIC: Negative. PHYSICAL EXAMINATION: GENERAL: Shows to be middle-aged gentleman, in no apparent respiratory distress. NECK: Supple. No jugular venous distention. No abdominojugular reflux noted. LUNGS: Clear to auscultation and percussion. CARDIAC: S1 is normal. S2 is normal. Regular rate and rhythm. No heaves or thrills noted. ABDOMEN: Soft, nontender. Positive bowel sounds. EXTREMITIES: There is no clubbing or cyanosis nor is there any edema. NEUROLOGICAL: He is awake, alert, responsive, in no apparent respiratory distress. LABORATORY AND DIAGNOSTIC DATA: White count of 4.2, hemoglobin 9.6, and platelet count of 188,000. Sodium 142, potassium 4.8, chloride 114, bicarbonate of 16, BUN of 31, creatinine 2.0 down from 3.1 the day before, and glucose of 109. Uric acid is 7.9. Calcium of 7. Magnesium 1.6. Phosphorus of 2.2. Iron of 33 with 9% saturation and LDH of 166. His total CK of 39. Albumin of 3.3. Total cholesterol of 126 with LDL of 76 and HDL of 39. B12 of 252. TSH is 0.895. Cortisol level of 30.8. Initially at the time of admission, his potassium was 6.8. Troponin on one occasion was 0.00. ProBNP was only 110 and albumin was documented at 3.8. His telemetry shows sinus rhythm. His EKG shows normal sinus rhythm from yesterday, no ST or T-wave abnormality, and in fact, borderline sinus bradycardia being documented. ASSESSMENT AND PLAN: 1. Syncope. 2. Dehydration. 3. Hypotension yesterday secondary to above. 4. Hypertension. 5. Hyperkalemia. 6. Renal failure. 7. Hypothyroidism. 8. Anemia. 9. Iron deficiency. 10. Electrolyte abnormalities. Dr. Ventura, this patient was seen in cardiac consultation. Judging by the fact that he has had history of hypertension and has been on antihypertensive medications, blood pressure in the emergency room of 94/56 is likely too low for him or may have been exacerbated by the fact that he has taken the medication in face of dehydration secondary to diarrhea. Nevertheless, his blood pressure has improved now to 108/60. The patient is being seen by Dr. Cunningham from nephrology. His TERRY inhibitors will be discontinued in light of the fact that he has hyperkalemia. He is on beta-blockers which will be continued. Intravenous hydration has been instituted. An echocardiogram will be ordered for further evaluation. He did have chest x-ray in the emergency room that shows relatively benign. His telemetry is also negative. If in his echocardiogram, LV function is intact and he is not orthostatic, he may be able to go home relatively soon. Eyal Pritchett M.D. DR: APOORVA JOB#: [id number] CC:
--- NOTE | 2017-07-12 11:26 | Pulmonology Progress Note ---
Assessment/Plan Problems: (1) Acute encephalopathy (2) Hyperkalemia, diminished renal excretion (3) History of hypertension (4) History of psychosis Assessment/Plan improving renal function better sitting up in the chair K better Mg and phos supplement continue iv fluis dc planning Subjective ROS Limited/Unobtainable: No Constitutional: Reports: no symptoms HEENT: Repors: no symptoms Respiratory: Reports: no symptoms Allergies: Coded Allergies: No Known Allergies (Unverified , 07/10/17) Objective Last 24 Hour Vital Signs Date Time Temp Pulse Resp B/P (MAP) Pulse Ox O2 Delivery O2 Flow Rate FiO2 07/12/17 09:30 61 70 72 07/12/17 09:19 61 111/65 07/12/17 08:32 66 07/12/17 08:00 97.7 61 20 111/65 99 Room Air 07/12/17 04:00 97.7 63 20 104/64 99 Room Air 07/12/17 04:00 60 07/12/17 00:00 58 07/12/17 00:00 97.9 60 20 108/61 98 Room Air 07/11/17 20:00 98.1 62 20 109/69 99 Room Air 07/11/17 20:00 62 07/11/17 16:00 62 07/11/17 16:00 98.3 60 18 106/50 100 Room Air 07/11/17 13:21 62 64 69 07/11/17 12:00 98.8 60 18 103/54 99 Room Air 07/11/17 11:47 63 Intake and Output 07/11/17 07/12/17 19:00 07:00 Intake Total 840 ml 575 ml Output Total 1000 ml 900 ml Balance -160 ml -325 ml Intake Oral 840 ml 350 ml IV Total 225 ml Output Urine Total 1000 ml 900 ml # Voids 4 2 General Appearance: WD/WN HEENT: normocephalic, atraumatic Respiratory/Chest: chest wall non-tender Cardiovascular: normal peripheral pulses, normal rate Abdomen: normal bowel sounds, no organomegaly Genitourinary: normal external genitalia Extremities: no clubbing Neurologic/Psychiatric: 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 Complete 07/10/17 17:20 Rectum VRE Culture - Final NO VANCOMYCIN RESISTANT ENTEROCOCCUS ... Complete Laboratory Tests 07/12/17 04:00: White Blood Count 4.2L, Red Blood Count 2.85L, Hemoglobin 9.4L, Hematocrit 28.3L , Mean Corpuscular Volume 100H, Mean Corpuscular Hemoglobin 33.0H, Mean Corpuscular Hemoglobin Concent 33.1, Red Cell Distribution Width 12.1, Platelet Count 176, Mean Platelet Volume 8.3, Neutrophils (%) (Auto) 44.6L, Lymphocytes ( %) (Auto) 36.4, Monocytes (%) (Auto) 9.5, Eosinophils (%) (Auto) 9.0H, Basophils (%) (Auto) 0.5, Neutrophils % (Manual) [Pending], Lymphocytes % ( Manual) [Pending], Platelet Estimate [Pending], Platelet Morphology [Pending], Erythrocyte Sedimentation Rate 42H, Reticulocyte Count 1.4, Prothrombin Time 10.9, Prothromb Time International Ratio 1.0, Activated Partial Thromboplast Time 29, Urine Eosinophils None seen, Urine Random Sodium 81, Sodium Level 142, Potassium Level 4.3, Chloride Level 112H, Carbon Dioxide Level 19L, Anion Gap 11 , Blood Urea Nitrogen 21H, Creatinine 1.6H, Estimat Glomerular Filtration Rate 43.3, Glucose Level 98, Hemoglobin A1c 5.8, Uric Acid 7.2, Calcium Level 8.2L, Phosphorus Level 3.2, Magnesium Level 1.9, Iron Level 41L, Total Iron Binding Capacity 334, Percent Iron Saturation 12L, Unsaturated Iron Binding 293, Ferritin 314, Total Bilirubin 0.3, Gamma Glutamyl Transpeptidase 11, Aspartate Amino Transf (AST/SGOT) 15, Alanine Aminotransferase (ALT/SGPT) 15, Alkaline Phosphatase 68, Lactate Dehydrogenase 186, Total Creatine Kinase 64, Troponin I 0.003, C-Reactive Protein, Quantitative 3.0H, Pro-B-Type Natriuretic Peptide 93 , Total Protein 7.0, Albumin 3.2L, Globulin 3.8, Albumin/Globulin Ratio 0.8L, Vitamin B12 Level 246, Folate 32.0 Current Medications Medications (Trade) Dose Ordered Sig/Sandra Route PRN Reason Start Time Stop Time Status Last Admin Dose Admin Acetaminophen (Tylenol) 650 mg Q4H PRN ORAL T>100.5 07/10/17 14:45 08/09/17 14:44 Atenolol (Tenormin) 25 mg DAILY ORAL 07/11/17 09:00 08/10/17 08:59 07/12/17 09:19 Clonidine HCl (Catapres Tab) 0.1 mg Q4H PRN ORAL SBP > 160mmHg 07/10/17 14:45 08/09/17 14:44 Dextrose (Dextrose 50%) STAT PRN IV Hypoglycemia 07/10/17 14:45 08/09/17 14:44 Dextrose/Sodium Chloride 1,000 ml @ 75 mls/hr [id number] IV 07/11/17 13:30 08/10/17 13:29 07/12/17 02:52 Fluoxetine HCl (PROzac) 10 mg DAILY ORAL 07/11/17 09:00 08/10/17 08:59 07/12/17 09:18 Heparin Sodium (Porcine) (Heparin 5000 units/ml) 5,000 units EVERY 12 HOURS SUBQ 07/10/17 21:00 08/09/17 20:59 07/12/17 09:17 Levothyroxine Sodium (Synthroid) 75 mcg ACBREAKFAST ORAL 07/11/17 06:30 08/10/17 06:29 07/12/17 06:08 Lorazepam (Ativan 2mg/ml 1ml) 0.5 mg Q4H PRN IV For Anxiety 07/10/17 14:45 07/17/17 14:44 Morphine Sulfate (Morphine Sulfate) 1 mg Q4H PRN IVP PAIN 4-10 07/10/17 14:45 07/17/17 14:44 Olanzapine (ZyPREXA) 5 mg QHS ORAL 07/10/17 21:00 08/09/17 20:59 07/11/17 20:47 Ondansetron HCl (Zofran) 4 mg Q6H PRN IVP Nausea & Vomiting 07/10/17 14:45 08/09/17 14:44 Pantoprazole (Protonix) 40 mg DAILY ORAL 07/11/17 13:15 08/10/17 13:14 07/12/17 09:18 Polyethylene Glycol (Miralax) 17 gm HSPRN PRN ORAL Constipation 07/10/17 21:00 08/09/17 20:59 Tamsulosin HCl (Flomax) 0.4 mg BEDTIME ORAL 07/11/17 21:00 08/10/17 20:59 07/11/17 20:47 Zolpidem Tartrate (Ambien) 5 mg HSPRN PRN ORAL Insomnia 07/10/17 21:00 07/17/17 20:59 DELILAH SANCHEZ Jul 12, 2017 11:26
--- NOTE | 2017-07-12 20:29 | Cardiology Progress Note ---
Assessment/Plan Assessment/Plan 1. Syncope. 2. Dehydration. 3. Hypotension yesterday secondary to above. 4. Hypertension. 5. Hyperkalemia. 6. Renal failure. 7. Hypothyroidism. 8. Anemia. 9. Iron deficiency. 10. Electrolyte abnormalities not orthostic today but bp on the low side cortisol was normal no new cx no further diarrhea tel reviewed sinus / sinus lisa sin on bb will decrease dose on on Synthroid tsh was fine Objective Last 24 Hour Vital Signs Date Time Temp Pulse Resp B/P (MAP) Pulse Ox O2 Delivery O2 Flow Rate FiO2 07/12/17 17:59 121/71 07/12/17 15:29 58 14 98/62 100 Room Air 07/12/17 12:02 97.7 73 20 101/55 99 Room Air 07/12/17 11:56 54 07/12/17 09:30 61 70 72 07/12/17 09:19 61 111/65 07/12/17 08:32 66 07/12/17 08:00 97.7 61 20 111/65 99 Room Air 07/12/17 04:00 97.7 63 20 104/64 99 Room Air 07/12/17 04:00 60 07/12/17 00:00 58 07/12/17 00:00 97.9 60 20 108/61 98 Room Air Intake and Output 07/11/17 07/12/17 19:00 07:00 Intake Total 840 ml 575 ml Output Total 1000 ml 900 ml Balance -160 ml -325 ml Intake Oral 840 ml 350 ml IV Total 225 ml Output Urine Total 1000 ml 900 ml # Voids 4 2 Laboratory Tests Test 07/12/17 04:00 White Blood Count 4.2 K/UL (4.8-10.8) L Red Blood Count 2.85 M/UL (4.70-6.10) L Hemoglobin 9.4 G/DL (14.2-18.0) L Hematocrit 28.3 % (42.0-52.0) L Mean Corpuscular Volume 100 FL (80-99) H Mean Corpuscular Hemoglobin 33.0 PG (27.0-31.0) H Mean Corpuscular Hemoglobin Concent 33.1 G/DL (32.0-36.0) Red Cell Distribution Width 12.1 % (11.6-14.8) Platelet Count 176 K/UL (150-450) Mean Platelet Volume 8.3 FL (6.5-10.1) Neutrophils (%) (Auto) 44.6 % (45.0-75.0) L Lymphocytes (%) (Auto) 36.4 % (20.0-45.0) Monocytes (%) (Auto) 9.5 % (1.0-10.0) Eosinophils (%) (Auto) 9.0 % (0.0-3.0) H Basophils (%) (Auto) 0.5 % (0.0-2.0) Differential Total Cells Counted 100 Neutrophils % (Manual) 51 % (45-75) Lymphocytes % (Manual) 35 % (20-45) Monocytes % (Manual) 4 % (1-10) Eosinophils % (Manual) 9 % (0-3) H Basophils % (Manual) 0 % (0-2) Band Neutrophils 1 % (0-8) Other Cell Type Pathologist comment Platelet Estimate Adequate Platelet Morphology Normal Poikilocytosis 1+ Marshall Cells 1+ Erythrocyte Sedimentation Rate 42 MM/HR (0-20) H Reticulocyte Count 1.4 % (0.0-2.0) Prothrombin Time 10.9 SEC (9.30-11.50) Prothromb Time International Ratio 1.0 (0.9-1.1) Activated Partial Thromboplast Time 29 SEC (23-33) Urine Eosinophils None seen Urine Random Sodium 81 MEQ/L (20-110) Sodium Level 142 MMOL/L (136-145) Potassium Level 4.3 MMOL/L (3.5-5.1) Chloride Level 112 MMOL/L (98-107) H Carbon Dioxide Level 19 MMOL/L (21-32) L Anion Gap 11 mmol/L (5-15) Blood Urea Nitrogen 21 mg/dL (7-18) H Creatinine 1.6 MG/DL (0.55-1.30) H Estimat Glomerular Filtration Rate 43.3 mL/min (>60) Glucose Level 98 MG/DL (74-106) Hemoglobin A1c 5.8 % (4.3-6.0) Uric Acid 7.2 MG/DL (2.6-7.2) Calcium Level 8.2 MG/DL (8.5-10.1) L Phosphorus Level 3.2 MG/DL (2.5-4.9) Magnesium Level 1.9 MG/DL (1.8-2.4) Iron Level 41 ug/dL (50-175) L Total Iron Binding Capacity 334 ug/dL (250-450) Percent Iron Saturation 12 % (15-50) L Unsaturated Iron Binding 293 ug/dL (112-346) Ferritin 314 NG/ML (8-388) Total Bilirubin 0.3 MG/DL (0.2-1.0) Gamma Glutamyl Transpeptidase 11 U/L (5-85) Aspartate Amino Transf (AST/SGOT) 15 U/L (15-37) Alanine Aminotransferase (ALT/SGPT) 15 U/L (12-78) Alkaline Phosphatase 68 U/L (46-116) Lactate Dehydrogenase 186 U/L (81-234) Total Creatine Kinase 64 U/L (26-308) Troponin I 0.003 ng/mL (0.000-0.056) C-Reactive Protein, Quantitative 3.0 mg/dL (0.00-0.90) H Pro-B-Type Natriuretic Peptide 93 pg/mL (0-125) Total Protein 7.0 G/DL (6.4-8.2) Albumin 3.2 G/DL (3.4-5.0) L Globulin 3.8 g/dL Albumin/Globulin Ratio 0.8 (1.0-2.7) L Vitamin B12 Level 246 PG/ML (193-986) Folate 32.0 NG/ML (8.6-58.9) Microbiology Date/Time Source Procedure Growth Status 07/10/17 17:20 Nasal Nares MRSA Culture - Final NO METHICILLIN RESISTANT STAPH AUREUS... Complete 07/10/17 17:20 Rectum VRE Culture - Final NO VANCOMYCIN RESISTANT ENTEROCOCCUS ... Complete DELFIN SOLITARIO Jul 12, 2017 20:29
[2017-07-12] MEDS: Tamsulosin 0.4mg cap ORAL SCH (20:40)
[2017-07-13 00:10] VITALS: BP 110/60
[2017-07-13 04:05] VITALS: BP 94/58
[2017-07-13] MEDS: D5 1/2NS 1,000 ML IV SCH (05:45)
[2017-07-13 08:00] VITALS: BP 102/60
[2017-07-13 08:19] VITALS: BP 102/60
[2017-07-13] MEDS: FLUoxetine 10mg cap ORAL SCH (08:19)
[2017-07-13] MEDS: Heparin 5000 units/ml inj SUBQ SCH (08:21)
[2017-07-13 08:31] LABS: BASOPHILS % (AUTO) 0.8 % (0.0-2.0); HEMATOCRIT 28.8 % (42.0-52.0); HEMOGLOBIN 9.7 G/DL (14.2-18.0); LYMPHOCYTES % (AUTO) 36.3 % (20.0-45.0); MEAN CORPUSCULAR VOLUME 100 FL (80-99); MONOCYTES % (AUTO) 8.8 % (1.0-10.0); NEUTROPHILS % (AUTO) 47.1 % (45.0-75.0); PLATELET COUNT 178 K/UL (150-450); RED BLOOD COUNT 2.89 M/UL (4.70-6.10); RED CELL DISTRIBUTION WIDTH 12.2 % (11.6-14.8); WHITE BLOOD COUNT 4.6 K/UL (4.8-10.8)
[2017-07-13 08:55] LABS: ALANINE AMINOTRANSFERASE 12 U/L (12-78); ALBUMIN 3.1 G/DL (3.4-5.0); ALBUMIN/GLOBULIN RATIO 0.8 (1.0-2.7); ALKALINE PHOSPHATASE 71 U/L (46-116); ANION GAP 10 mmol/L (5-15); ASPARTATE AMINO TRANSFERASE 16 U/L (15-37); BILIRUBIN,TOTAL 0.2 MG/DL (0.2-1.0); BLOOD UREA NITROGEN 16 mg/dL (7-18); CALCIUM 8.1 MG/DL (8.5-10.1); CARBON DIOXIDE 19 MMOL/L (21-32); CHLORIDE 113 MMOL/L (98-107); CREATININE 1.6 MG/DL (0.55-1.30); PHOSPHORUS 2.2 MG/DL (2.5-4.9); POTASSIUM 4.7 MMOL/L (3.5-5.1); SODIUM 142 MMOL/L (136-145)
[2017-07-13] MEDS ORDERED: Atenolol 25mg tab ORAL SCH (09:00)
--- NOTE | 2017-07-13 10:43 | Nephrology Progress Note ---
Assessment/Plan Problem List: (1) Hyperkalemia, diminished renal excretion (2) Acute renal failure Assessment Renal failure, Likely hypertensive kidney disease- Cr lowering 1.6 stable Hyperkalemia resolve Anemia- HTN Schizophrenia Plan Plan: Mag and phos supplement- Kidney NGUYỄN Neg 2D echo Left ventricular ejection fraction estimated to be 55 %. stop Hydration Urine studies monitor renal parameters per orders Objective Objective Last 24 Hour Vital Signs Date Time Temp Pulse Resp B/P (MAP) Pulse Ox O2 Delivery O2 Flow Rate FiO2 07/13/17 08:19 63 102/60 07/13/17 08:00 97.1 63 20 102/60 96 Room Air 07/13/17 08:00 69 07/13/17 04:05 98.1 62 20 94/58 97 07/13/17 03:52 66 07/13/17 00:13 62 07/13/17 00:10 98.0 62 20 110/60 98 07/12/17 20:00 98.0 60 20 116/70 99 07/12/17 19:14 60 07/12/17 17:59 121/71 07/12/17 15:29 58 14 98/62 100 Room Air 07/12/17 12:02 97.7 73 20 101/55 99 Room Air 07/12/17 11:56 54 Intake and Output 07/12/17 07/13/17 19:00 07:00 Intake Total 995 ml 690 ml Output Total 2450 ml 1000 ml Balance -1455 ml -310 ml Intake Oral 620 ml IV Total 375 ml 690 ml Output Urine Total 2450 ml 1000 ml # Voids 2 3 Laboratory Tests 07/13/17 08:15: White Blood Count 4.6L, Red Blood Count 2.89L, Hemoglobin 9.7L, Hematocrit 28.8L , Mean Corpuscular Volume 100H, Mean Corpuscular Hemoglobin 33.5H, Mean Corpuscular Hemoglobin Concent 33.6, Red Cell Distribution Width 12.2, Platelet Count 178, Mean Platelet Volume 7.5, Neutrophils (%) (Auto) 47.1, Lymphocytes (% ) (Auto) 36.3, Monocytes (%) (Auto) 8.8, Eosinophils (%) (Auto) 7.0H, Basophils (%) (Auto) 0.8, Sodium Level 142, Potassium Level 4.7, Chloride Level 113H, Carbon Dioxide Level 19L, Anion Gap 10, Blood Urea Nitrogen 16, Creatinine 1.6H , Estimat Glomerular Filtration Rate 43.3, Glucose Level 127H, Uric Acid 7.0, Calcium Level 8.1L, Phosphorus Level 2.2L, Magnesium Level 1.4L, Total Bilirubin 0.2, Aspartate Amino Transf (AST/SGOT) 16, Alanine Aminotransferase ( ALT/SGPT) 12, Alkaline Phosphatase 71, C-Reactive Protein, Quantitative 0.9, Pro -B-Type Natriuretic Peptide 63, Total Protein 6.9, Albumin 3.1L, Globulin 3.8, Albumin/Globulin Ratio 0.8L Height (Feet): 5 Height (Inches): 6.00 Weight (Pounds): 150 Objective no signs of chf EVA FARLEY Jul 13, 2017 10:43
[2017-07-13] MEDS ORDERED: Phospha 250 Neutral tab ORAL ONE (10:45)
[2017-07-13] MEDS ORDERED: Tubing IV Secondary IV ONE (14:57)
[2017-07-13] MEDS ORDERED: NS 500ML ONE (14:57)
[2017-07-13] MEDS ORDERED: D5 1/2NS 1000ml IV ONE (14:57)
--- NOTE | 2017-07-13 15:32 | Pulmonology Progress Note ---
Assessment/Plan Problems: (1) Acute encephalopathy (2) Hyperkalemia, diminished renal excretion (3) History of hypertension (4) History of psychosis Assessment/Plan improving renal function better sitting up in the chair K better Mg and phos supplement check electrolytes dc planning to [facility] Subjective ROS Limited/Unobtainable: No Constitutional: Reports: no symptoms HEENT: Repors: no symptoms Respiratory: Reports: no symptoms Allergies: Coded Allergies: No Known Allergies (Unverified , 07/10/17) Objective Last 24 Hour Vital Signs Date Time Temp Pulse Resp B/P (MAP) Pulse Ox O2 Delivery O2 Flow Rate FiO2 07/13/17 08:19 63 102/60 07/13/17 08:00 97.1 63 20 102/60 96 Room Air 07/13/17 08:00 69 07/13/17 04:05 98.1 62 20 94/58 97 07/13/17 03:52 66 07/13/17 00:13 62 07/13/17 00:10 98.0 62 20 110/60 98 07/12/17 20:00 98.0 60 20 116/70 99 07/12/17 19:14 60 07/12/17 17:59 121/71 Intake and Output 07/12/17 07/13/17 19:00 07:00 Intake Total 995 ml 690 ml Output Total 2450 ml 1000 ml Balance -1455 ml -310 ml Intake Oral 620 ml IV Total 375 ml 690 ml Output Urine Total 2450 ml 1000 ml # Voids 2 3 General Appearance: WD/WN HEENT: normocephalic, atraumatic Respiratory/Chest: chest wall non-tender, lungs clear Cardiovascular: normal peripheral pulses, normal rate Abdomen: normal bowel sounds, soft, non tender Genitourinary: normal external genitalia Extremities: no cyanosis, no clubbing Microbiology Date/Time Source Procedure Growth Status 07/10/17 17:20 Nasal Nares MRSA Culture - Final NO METHICILLIN RESISTANT STAPH AUREUS... Complete 07/10/17 17:20 Rectum VRE Culture - Final NO VANCOMYCIN RESISTANT ENTEROCOCCUS ... Complete Laboratory Tests 07/13/17 08:15: White Blood Count 4.6L, Red Blood Count 2.89L, Hemoglobin 9.7L, Hematocrit 28.8L , Mean Corpuscular Volume 100H, Mean Corpuscular Hemoglobin 33.5H, Mean Corpuscular Hemoglobin Concent 33.6, Red Cell Distribution Width 12.2, Platelet Count 178, Mean Platelet Volume 7.5, Neutrophils (%) (Auto) 47.1, Lymphocytes (% ) (Auto) 36.3, Monocytes (%) (Auto) 8.8, Eosinophils (%) (Auto) 7.0H, Basophils (%) (Auto) 0.8, Sodium Level 142, Potassium Level 4.7, Chloride Level 113H, Carbon Dioxide Level 19L, Anion Gap 10, Blood Urea Nitrogen 16, Creatinine 1.6H , Estimat Glomerular Filtration Rate 43.3, Glucose Level 127H, Uric Acid 7.0, Calcium Level 8.1L, Phosphorus Level 2.2L, Magnesium Level 1.4L, Total Bilirubin 0.2, Aspartate Amino Transf (AST/SGOT) 16, Alanine Aminotransferase ( ALT/SGPT) 12, Alkaline Phosphatase 71, C-Reactive Protein, Quantitative 0.9, Pro -B-Type Natriuretic Peptide 63, Total Protein 6.9, Albumin 3.1L, Globulin 3.8, Albumin/Globulin Ratio 0.8L Current Medications Medications (Trade) Dose Ordered Sig/Sandra Route PRN Reason Start Time Stop Time Status Last Admin Dose Admin Acetaminophen (Tylenol) 650 mg Q4H PRN ORAL T>100.5 07/10/17 14:45 08/09/17 14:44 Atenolol (Tenormin) 12.5 mg DAILY ORAL 07/13/17 09:00 08/12/17 08:59 Clonidine HCl (Catapres Tab) 0.1 mg Q4H PRN ORAL SBP > 160mmHg 07/10/17 14:45 08/09/17 14:44 Dextrose (Dextrose 50%) STAT PRN IV Hypoglycemia 07/10/17 14:45 08/09/17 14:44 Fluoxetine HCl (PROzac) 10 mg DAILY ORAL 07/11/17 09:00 08/10/17 08:59 07/13/17 08:19 Heparin Sodium (Porcine) (Heparin 5000 units/ml) 5,000 units EVERY 12 HOURS SUBQ 07/10/17 21:00 08/09/17 20:59 07/13/17 08:21 Levothyroxine Sodium (Synthroid) 75 mcg ACBREAKFAST ORAL 07/11/17 06:30 08/10/17 06:29 07/13/17 05:45 Lorazepam (Ativan 2mg/ml 1ml) 0.5 mg Q4H PRN IV For Anxiety 07/10/17 14:45 07/17/17 14:44 Morphine Sulfate (Morphine Sulfate) 1 mg Q4H PRN IVP PAIN 4-10 07/10/17 14:45 07/17/17 14:44 Olanzapine (ZyPREXA) 5 mg QHS ORAL 07/10/17 21:00 08/09/17 20:59 07/12/17 20:40 Ondansetron HCl (Zofran) 4 mg Q6H PRN IVP Nausea & Vomiting 07/10/17 14:45 08/09/17 14:44 Pantoprazole (Protonix) 40 mg DAILY ORAL 07/11/17 13:15 08/10/17 13:14 07/13/17 08:19 Polyethylene Glycol (Miralax) 17 gm HSPRN PRN ORAL Constipation 07/10/17 21:00 08/09/17 20:59 Tamsulosin HCl (Flomax) 0.4 mg BEDTIME ORAL 07/11/17 21:00 08/10/17 20:59 07/12/17 20:40 Zolpidem Tartrate (Ambien) 5 mg HSPRN PRN ORAL Insomnia 07/10/17 21:00 07/17/17 20:59 DELILAH SANCHEZ Jul 13, 2017 15:31
--- NOTE | 2017-07-14 13:36 | Discharge Summary ---
Discharge Summary Hospital Course Date of Admission Jul 10, 2017 at 13:03 Date of Discharge Jul 13, 2017 at 14:58 Admitting Diagnosis hyperkalemia, end stage renal disease CAROLYNE Flores is a 67 year old male who was admitted on Jul 10, 2017 at 13:03 for Hyperkalemia, End Stage Renal Disease Hospital Course [id number] Discharge Discharge Disposition Patient was discharged to [facility] Discharge Diagnoses: Yola Kemp NP Jul 14, 2017 13:36
--- NOTE | 2017-07-15 02:45 | Discharge Summary 2 SIG ---
DATE OF ADMISSION: 07/10/2017 DATE OF DISCHARGE: 07/13/2017 CONSULTANTS: 1. Eyal Pritchett M.D. 2. Yonathan Cunningham M.D. 3. Carlos Bhandari M.D. BRIEF HOSPITAL COURSE: The patient is a 67-year-old male with history of hypertension and psychosis, presented to ED status post syncopal episode. The patient was at the adult daycare when he started to feel dizzy and passed out. There was no head trauma. Per EMS, he had low blood pressure. He was given IV hydration. He has been having diarrhea for the past few days and was feeling weak. On evaluation at ED, potassium was elevated to 6.2, creatinine was 3.1, BUN 43. Troponin was negative. He had an EKG done that showed normal sinus rhythm with no acute ischemic changes and chest x-ray was unremarkable. He was admitted to telemetry for evaluation of syncope and hyperkalemia. He was given calcium gluconate, insulin, and D50. Thyroid, TSH was normal and was continued on levothyroxine 75 mcg. He had a renal ultrasound that showed no acute findings. He was given IV hydration with improvement of creatinine. Neurological examination was done. There was no evidence of transient ischemic attack or seizure disorder noted. He was given aspirin 81 mg daily. Cortisol level was normal. Telemetry showed sinus/sinus bradycardia. Beta-ang was decreased to dose. He was given magnesium and phosphorus supplements and IV hydration was eventually discontinued. He was given physical therapy and was eventually discharged to [facility]. FINAL DIAGNOSES: 1. Acute metabolic encephalopathy. 2. Hyperkalemia. 3. Acute renal failure, likely hypertensive kidney disease. 4. Anemia. 5. Schizophrenia. 6. Hypertension. 7. Syncope, possibly secondary to dehydration 8. Anemia. 9. Episode of hypotension, secondary to dehydration due to diarrhea, resolved. DISPOSITION: The patient was discharged to [facility]. DISCHARGE MEDICATIONS: Refer to medication list. Dilcia Ventura M.D. I have been assigned to dictate discharge summary on this account and I was not involved in the patient's management. Yola Kemp N.P. DR: Maricel JOB#: [id number] CC:
== END 2017-07-13 14:58 | DRG 640 ==
LOC: EDBD 10:41 → EMR 12:55 → 2W 13:03 → EDBEDREQ 16:27 → ENRESERV 07-11 04:47 → 2E 07-12 10:54
DX: E86.0 Dehydration (principal); G93.41 Metabolic encephalopathy; N17.9 Acute kidney failure, unspecified; I95.9 Hypotension, unspecified; E87.5 Hyperkalemia; F20.9 Schizophrenia, unspecified; R55 Syncope and collapse; Z23 Encounter for immunization; R19.7 Diarrhea, unspecified; E03.9 Hypothyroidism, unspecified; E78.5 Hyperlipidemia, unspecified; D50.9 Iron deficiency anemia, unspecified; I12.9 Hypertensive chronic kidney disease with stage 1 through stage 4 chronic kidney disease, or unspecified chronic kidney disease; N18.9 Chronic kidney disease, unspecified
CPT/HCPCS: 36415; 71045; 76775; 80053; 80061; 82378; 82533; 82550; 82553; 82607; 82728; 82746; 82962; 82977; 83036; 83540; 83550; 83615; 83735; 83880; 84100; 84300; 84443; 84484; 84550; 85007; 85025; 85044; 85060; 85610; 85651; 85730; 86140; 87081; 89050; 90630; 90732; 93005; 93306; 99285; C9399